=== PATIENT | female | born 1970 ===

== ENCOUNTER 2022-01-02 11:45 | Inpatient (IN) | payer OTHER ==
[2022-01-02] MEDS ORDERED: CLONAZEPAM PO (16:40)
[2022-01-02] MEDS ORDERED: VITAMIN C PO (16:41)
[2022-01-02] MEDS ORDERED: [UNRECOGNIZED DRUG - OTHER] PO (16:41)
[2022-01-03] MEDS ORDERED: CLONAZEPAM0.125 MG (11:24)
[2022-01-03] MEDS ORDERED: MAGNESIUM200 MG (11:25)
[2022-01-03] MEDS ORDERED: VITAMIN C100 MG (11:25)
== END 2022-01-04 20:43 | disposition home or self-care (01) | DRG 743 ==
LOC: O/R 01-03 07:31 → OB/GYN 01-03 07:31
PROVIDERS: ADMIT Specialist; ATTEND Specialist
PROC: 0UT74ZZ Resection of Bilateral Fallopian Tubes, Percutaneous Endoscopic Approach (ICD-10-PCS; 2022-01-03)
PROC: 0UT24ZZ Resection of Bilateral Ovaries, Percutaneous Endoscopic Approach (ICD-10-PCS; 2022-01-03)
PROC: 0DNW4ZZ Release Peritoneum, Percutaneous Endoscopic Approach (ICD-10-PCS; 2022-01-03)
PROC: 0UT94ZZ Resection of Uterus, Percutaneous Endoscopic Approach (ICD-10-PCS; principal; 2022-01-03 10:30)
DX: D25.1 Intramural leiomyoma of uterus (principal); D25.2 Subserosal leiomyoma of uterus; D25.0 Submucous leiomyoma of uterus; Z20.822 Contact with and (suspected) exposure to COVID-19; N72 Inflammatory disease of cervix uteri